=== PATIENT | female | born 1935 | race Caucasian/White ===

== ENCOUNTER 2016-08-03 01:26 | Emergency (ER) | payer MEDICARE, OTHER ==
[2016-08-03] MEDS ORDERED: NALBUPHINE HCL 10 MG/1 ML IM PRN (01:55)
[2016-08-03] MEDS: KETOROLAC TROMETHAMINE 30 MG/1ML VIAL IM ONE (02:09)
[2016-08-03] MEDS: NALBUPHINE HCL 10 MG/1 ML IM STA (02:10)
--- NOTE | 2016-08-03 02:35 | Diagnostic Imaging Report ---
[facility] [id number] [facility].[address] [id number] Report Submission Date: Aug 03, 2016 2:33:23 AM WAFER CUTTER Patient Study Name: PAULA JONES Date: Aug 03, 2016 2:15:08 AM WAFER CUTTER Modality Type: CR Gender: F Description: SPINE : 31 Institution: [facility] Physician: VALERIANO SANTORO (SPA MANAGER/ESTHETICIAN) - ER Lumbar spine - three views Clinical history: Bilateral leg pain. Findings: Examination of the lumbar spine in AP, lateral and lateral coned- down views demonstrates postoperative changes with lumbosacral fusion. Unilateral pedicle screw is seen on the left at L1 with bilateral pedicle screws at L2, L4 and S1. There are posterior stabilization rods. Prior laminectomy has been performed at L4 and L5. Disc spaces are narrowed at T12-L1 , L1-2, L3-4 and L4-5. The alignment of the vertebrae is anatomic. Extensive vascular calcification is demonstrated. There is no evident fracture. Impression: 1. Postop lumbosacral fusion. 2. Spondylosis. 3. No fracture. Electronically signed on Aug 03, 2016 2:33:23 AM WAFER CUTTER by: Jose OLIVAREZ
[2016-08-03 03:07] LABS: eGFR (African) > 60; eGFR (Non-African) > 60
--- NOTE | 2016-08-03 03:20 | ED Physician Documentation ---
General Adult - HISTORIAN Historian: patient - HPI Stated Complaint: Bilateral pain to bottom of feet, up into hips Further Comments: yes (81 year old female patient presents with complaints of bilateral foot pain, patient complaints of difficulty moving her right leg.) - PAST HX Past History: hypertension, other (GERD) Surgeries/Procedures: cardiac bypass, other (11 back surgeries) Allergies/Adverse Reactions: Allergies Allergy/AdvReac Type Severity Reaction Status Date / Time morphine AdvReac Hallucinati Verified 08/03/16 02:10 ons Home Medications: Ambulatory Orders Medication Instructions Recorded Clopidogrel Bisulfate [Clopidogrel] 75 mg PO D 08/03/16 Metoprolol Tartrate [Metoprolol 75 mg PO BID 08/03/16 Tartrate] Multivits-Min/Iron/FA/Lutein 1 tab PO D 08/03/16 [Centrum Silver Women Tablet] Omeprazole [Omeprazole] 20 mg PO D 08/03/16 RX: Tramadol HCl [Ultram] 25 mg PO PRN PRN 08/03/16 Ramipril [Ramipril] 10 mg PO D 08/03/16 - VITAL SIGNS Vital Signs: Vital Signs Temp Pulse Resp BP Pulse Ox 98.8 F 78 20 159/64 95 08/03/16 01:32 08/03/16 01:32 08/03/16 01:32 08/03/16 01:32 08/03/16 01:32 Progress - Progress Progress: Unable to obtain CBC due to mechanical failure. ED Results Lab/Radiology - Lab Results Lab Results: Lab Results 08/03/16 02:40 Sodium 136 mmol/L mmol/L (136-145) Potassium 4.4 mmol/L mmol/L (3.5-5.0) Chloride 102 mmol/L mmol/L (98-110) Carbon Dioxide 17 mmol/L L mmol/L (20-32) BUN 20 mg/dL mg/dL (10-26) Creatinine 1.0 mg/dL mg/dL (0.4-1.5) Estimated Creat Clear 64 Est GFR ( Amer) > 60 (60 - ) Est GFR (Non-Af Amer) > 60 (60 - ) Glucose 118 mg/dL H mg/dL (70-99) Calcium 9.4 mg/dL mg/dL (8.5-10.5) Total Bilirubin 0.3 mg/dL mg/dL (0.2-1.2) AST 27 U/L U/L (0-41) ALT 15 U/L U/L (0-45) Alkaline Phosphatase 85 U/L U/L (46-116) Total Protein 7.0 g/dL g/dL (6.0-8.5) Albumin 4.3 g/dL g/dL (3.0-5.5) - Radiology Radiology Impressions: Lumbar spine - three views Clinical history: Bilateral leg pain. Findings: Examination of the lumbar spine in AP, lateral and lateral coned-down views demonstrates postoperative changes with lumbosacral fusion. Unilateral pedicle screw is seen on the left at L1 with bilateral pedicle screws at L2, L4 and S1. There are posterior stabilization rods. Prior laminectomy has been performed at L4 and L5. Disc spaces are narrowed at T12-L1, L1-2, L3-4 and L4- 5. The alignment of the vertebrae is anatomic. Extensive vascular calcification is demonstrated. There is no evident fracture. Impression: 1. Postop lumbosacral fusion. 2. Spondylosis. 3. No fracture. - Orders Orders: ED Orders Category Date Time Status XR L-SP 2 OR 3 VIEWS [L SPINE 2 OR 3 VIEWS] [RAD] Stat Exams 08/03/16 Completed CBC/PLATELET/DIFF Stat Lab 08/03/16 02:40 Received CMP Stat Lab 08/03/16 02:40 Completed Ketorolac Tromethamine [Toradol] Med 08/03/16 01:54 Discontinued 30 mg IM NOW ONE Nalbuphine HCl [Nubain] Med 08/03/16 02:02 Discontinued 10 mg IM NOW STA Nalbuphine HCl [Nubain] Med 08/03/16 01:55 Discontinued 10 mg IM Q4H PRN Discharge Clincal Impression: Foot pain, bilateral Home Medications: Ambulatory Orders Clopidogrel Bisulfate [Clopidogrel] 75 mg PO D 08/03/16 Metoprolol Tartrate [Metoprolol Tartrate] 75 mg PO BID 08/03/16 Multivits-Min/Iron/FA/Lutein [Centrum Silver Women Tablet] 1 tab PO D 08/03/16 Omeprazole [Omeprazole] 20 mg PO D 08/03/16 RX: Tramadol HCl [Ultram] 25 mg PO PRN PRN 08/03/16 Ramipril [Ramipril] 10 mg PO D 08/03/16 Condition: Stable Disposition: 01 HOME, SELF-CARE Decision to Admit: NO Decision Time: 03:31
[2016-08-03 03:32] LABS: BASOPHILS % 0.2 (0.0-1.5); EOSINOPHILS % 0.7 % (0.0-6.8); LYMPHOCYTES # 1.5 # k/uL (0.6-4.0); MEAN CORPUSCULAR HEMOGLOBIN 29.1 pg (28.0-34.0); MONOCYTES # 0.5 # k/uL (0.0-0.9); MONOCYTES % 6.3 % (0.0-11.0); NEUTROPHILS # 5.4 # k/uL (1.4-7.7)
[2016-08-03 03:40] VITALS: BP 148/71
== END 2016-08-03 03:25 | disposition home or self-care (01) ==
LOC: ED 01:26
DX: M79.672 Pain in left foot (principal); M79.671 Pain in right foot
CPT/HCPCS: 72100; 80053; 85025; J1885; J2300; 96372; 99283; 99284